=== PATIENT | male | born 1955 | race Caucasian/White ===

== ENCOUNTER 2024-10-11 15:32 | Emergency (ER) | payer SELFPAY ==
[2024-10-11 15:33] VITALS: BP 241/159; PULSE 81; RESP 18; TEMP 37.1; O2SAT 95
--- NOTE | 2024-10-11 15:34 | EDNOTE_ITS ---
ED General RME/HPI General Chief complaint: Medical Clearance Stated complaint: MEDICAL CLEARNACE Time Seen by Provider: 10/11/24 15:34 Arrival date/time: 10/11/24 15:32 CC: Medical clearance HPI patient has known hypertension but has not taken medication for years. Patient is awake alert oriented very cooperative nonconfrontational. Who agrees to take medicines if necessary. Patient states he has elected not to take any pills for years for his hypertension. No other complaints at this time. Patient arrives handcuffs and escorted by [facility]. Related Data Previous Rx's ?Medication ?Instructions ?Recorded amlodipine 10 mg tablet 10 mg PO QDAY #30 tabs 02/08 aspirin 81 mg tablet,delayed 81 mg PO QDAY #30 tabs release (Adult Low Dose Aspirin) atorvastatin 10 mg tablet 10 mg PO QPM #30 tabs hydrochlorothiazide 25 mg tablet 25 mg PO QDAY #30 tab s 02/08/19 levothyroxine 125 mcg capsule 125 mcg PO QDAY #30 caps 02/08/19 lisinopril 40 mg tablet 40 mg PO QDAY #30 tabs 02/08 levothyroxine 50 mcg capsule 50 mcg PO QDAY #30 caps 0 09/03/22 lisinopril 40 mg tablet 40 mg PO QDAY #30 tabs 09/03 Allergies Allergy/AdvReac Type Severity Reaction Status Date / Time Penicillins Allergy Verified 09/06/22 16:50 Review of Systems Review of Systems Systems Reviewed: All systems reviewed, normal except as documented Past Medical History Past Medical History NEUROLOGIC: Negative Neurological Disorders CARDIAC: Positive Cardiac Disorders and Hypertension; Negative Congestive Heart Failure RESPIRATORY: Negative Chronic Obstructive Pulmonary Disease (COPD) GENITOURINARY: Negative Renal Disease ENDOCRINE: Negative Endocrine Disorders, Diabetes Mellitus Type 1 or Diabetes Mellitus Type 2 Social History SMOKING STATUS: Never smoker SUBSTANCE USE: does not use ED Exam Narrative Physical exam: [General: Appears not in any acute distress Head normocephalic HEENT: Within acceptable limits Neck is supple nontender Chest equal chest rise nontender to palpation Respiratory: Clear to auscultation no wheezes crackles or rubs CV: Rate rhythm is regular no murmurs rubs or clicks Abdomen is soft nontender no masses positive bowel sounds all 4 quadrants Back: No CVA tenderness no spinous process tenderness from cervical spine thoracic and lumbar spine Skin: Intact no petechiae rash induration ulceration or crepitus Extremities: Moving all extremity against resistance cap refill less than 2 seconds neurosensory intact Neuro: Awake alert oriented x3 Glascow coma 15 no focal deficits] Course Course Course Narrative: After 3 rounds of oral medications the patient refusing additional medications in spite of the blood pressure of 171/119. At this time the patient will be discharged she is aware of the consequences including a stroke and . We not achieve the goal of diastolic of 90 and the patient continues to refuse medication will discharge the patient At this time I cannot clear the patient for [facility]pc intake secondary to his refusal for taking medications and diastolic pressure of 117. The patient has been noncompliant with hypertensive medication for decade or more. I have this low index of suspicion that we will not achieve that goal in a short period of time. Quality Measures none Orders Category Date Time Status cloNIDine HCL [Catapres] Med 10/11/24 15:34 Discontinued 0.2 mg PO X1 ONE cloNIDine HCL [Catapres] Med 10/11/24 16:41 Discontinued 0.2 mg PO X1 ONE cloNIDine HCL [Catapres] Med 10/11/24 18:04 Discontinued 0.2 mg PO X1 ONE hydrALAZINE HCL [Apresoline] Med 10/11/24 15:34 Discontinued 25 mg PO X1 ONE Vital Signs Vital signs: Vital Signs Temperature 98.7 F 10/11/24 15:33 Pulse Rate 81 10/11/24 15:33 Respiratory Rate 18 10/11/24 15:33 Blood Pressure 241/159 H 10/11/24 15:33 Pulse Oximetry (%) 95 10/11/24 15:33 Oxygen Delivery Method Room Air 10/11/24 15:33 Discharge Plan Plan Patient Disposition: [facility]/Court/Law Patient condition on transfer: Stable Prescriptions/Referrals Prescriptions/Med Rec: No Action aspirin [Adult Low Dose Aspirin] 81 mg tablet,delayed release (DR/EC) 81 mg PO QDAY Qty: 30 0RF atorvastatin 10 mg tablet 10 mg PO QPM Qty: 30 0RF lisinopril 40 mg tablet 40 mg PO QDAY Qty: 30 0RF levothyroxine 125 mcg capsule 125 mcg PO QDAY Qty: 30 0RF amlodipine 10 mg tablet 10 mg PO QDAY Qty: 30 0RF hydrochlorothiazide 25 mg tablet 25 mg PO QDAY Qty: 30 0RF lisinopril 40 mg tablet 40 mg PO QDAY Qty: 30 0RF levothyroxine 50 mcg capsule 50 mcg PO QDAY Qty: 30 0RF Referrals: No Primary/Family,Physician [Primary Care Provider] - In 1 week Problem List Clinical Impression: Hypertension Patient/Caregiver Discharge Instructions Education Materials: ED High Blood Pressure ... 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 Supervising Physician: Chito BAHENA Clinical Information Provided by: patient Medical Records reviewed [facility] Chronic Illness/Social Conditions Explain: Hypertension medication noncompliance EKG EKG not done Labs Labs: none Medication Administration(s) Medication Administration History Discontinued Medications Clonidine (Clonidine Hcl 0.1 Mg Tablet) 0.2 mg PO X1 ONE Stop: 10/11/24 15:35 Last Admin: 10/11/24 16:10 Dose: 0.2 mg Documented By: MARCO ANTONIO Clonidine (Clonidine Hcl 0.1 Mg Tablet) 0.2 mg PO X1 ONE Stop: 10/11/24 16:42 Last Admin: 10/11/24 17:23 Dose: 0.2 mg Documented By: SIOMARA Clonidine (Clonidine Hcl 0.1 Mg Tablet) 0.2 mg PO X1 ONE Stop: 10/11/24 18:05 Last Admin: 10/11/24 18:10 Dose: Not Given Documented By: MARCO ANTONIO Non-Admin Reason: Patient Refused Hydralazine HCl (Hydralazine Hcl 25 Mg Tablet) 25 mg PO X1 ONE Stop: 10/11/24 15:35 Last Admin: 10/11/24 16:10 Dose: 25 mg Documented By: MARCO ANTONIO
[2024-10-11 16:10] VITALS: BP 241/159; PULSE 81
[2024-10-11] MEDS: cloNIDine HCL 0.1 MG TABLET 0.2 MG PO ×2 (16:10→17:23)
[2024-10-11] MEDS: hydrALAZINE HCL 25 MG TABLET PO (16:10)
[2024-10-11 16:42] VITALS: BP 228/142; PULSE 78; RESP 19; O2SAT 98
[2024-10-11 17:22] VITALS: BP 183/110; PULSE 79
[2024-10-11 17:23] VITALS: BP 183/110; PULSE 79
[2024-10-11 17:24] VITALS: BMI 26.4
--- NOTE | 2024-10-11 17:30 | PC.NURSE ---
Patient sent to ED from [facility] due to high BP. Patient asymptomatic, denies chest pain or SOB at this time. Patient states he has been dx with HTN, but does not take any medication at home. POC updated to patient.
[2024-10-11 18:09] VITALS: BP 171/113
== END 2024-10-11 18:25 ==
PROVIDERS: Emergency Provider Emergency Medicine
DX: Z02.89 Encounter for other administrative examinations (principal); I10 Essential (primary) hypertension; Z91.148 Patient's other noncompliance with medication regimen for other reason
CPT/HCPCS: 99282; A9270